=== PATIENT | male | born 1990 | race African-American/Black ===

== ENCOUNTER 2017-06-19 07:37 | Outpatient (CLI) | payer OTHER ==
[2016-09-05 15:26] VITALS: BP 136/68
[2017-06-19 08:15] LABS: BASOPHILS % 1.1 (0.0-1.5); MEAN CORPUSCULAR HEMOGLOBIN 26.4 pg (28.0-34.0); MEAN CORPUSCULAR VOLUME 81.9 fl (80.0-100.0); MONOCYTES % 6.8 % (0.0-11.0); NEUTROPHILS # 1.4 # k/uL (1.4-7.7)
[2017-06-19 08:49] LABS: eGFR (African) > 60; eGFR (Non-African) > 60
== END 2017-06-19 07:40 ==
LOC: LAB 07:37
PROVIDERS: ATTEND Emergency Medicine
DX: I10 Essential (primary) hypertension (principal); Z51.81 Encounter for therapeutic drug level monitoring; G80.9 Cerebral palsy, unspecified; F43.10 Post-traumatic stress disorder, unspecified
CPT/HCPCS: 36415; 80053; 80061; 80164; 82140; 82330; 83036; 83735; 84443; 85025

== ENCOUNTER 2017-09-06 13:55 | Outpatient (CLI) | payer OTHER ==
[2016-09-05 15:26] VITALS: BP 136/68
--- NOTE | 2017-09-06 15:32 | Diagnostic Imaging Report ---
TOÑO LI [facility] [address] [facility].[address] [address] Report Submission Date: Sep 06, 2017 2:34:40 PM ONLINE ADVERTISING ANALYST Patient Study Name: CHRISTOPH CULVER Date: Sep 06, 2017 2:05:44 PM ONLINE ADVERTISING ANALYST Modality Type: CR Gender: M Description: CHEST : 89 Institution: [facility] Physician: TOÑO LI Examination: PA and lateral chest. History: Evaluate lung hay. Findings: PA lateral chest demonstrate a normal cardiac and mediastinal silhouette. No focal infiltrate. No blunting of the costophrenic margins. Osseous structures are appropriate for age. Impression: No acute pulmonary process. Electronically signed on Sep 06, 2017 2:34:40 PM ONLINE ADVERTISING ANALYST by: Aries MERCADO
== END 2017-09-06 13:56 ==
LOC: RAD 13:55
PROVIDERS: ATTEND Nurse Practitioner Family
DX: R05 Cough (principal)
CPT/HCPCS: 71020

== ENCOUNTER 2017-11-01 09:56 | Outpatient (CLI) | payer OTHER ==
[2016-09-05 15:26] VITALS: BP 136/68
== END 2017-11-01 09:57 ==
LOC: OUT 09:56
PROVIDERS: ATTEND Colon & Rectal Surgery
DX: K92.1 Melena (principal); K59.09 Other constipation; I10 Essential (primary) hypertension; G80.9 Cerebral palsy, unspecified
CPT/HCPCS: 99213

== ENCOUNTER 2018-05-08 17:33 | Emergency (ER) | payer OTHER ==
[2018-05-08 17:56] VITALS: BP 125/85
--- NOTE | 2018-05-08 17:57 | ED Physician Documentation ---
Fall - HISTORIAN Historian: patient - HPI Stated Complaint: L axillary pain Chief Complaint: Shoulder Injury/ Pain Onset: just prior to arrival Where: home Context: tripped r: mild Associated Symptoms:: no loss of consciousness Location of Pain/Injury: L shoulder, upper extremity Injury to Right Extremity: none Injury to Left Extremity: shoulder, arm Further Comments: yes (he was walking and tripped on his untied shoe lace and f ell on his left arm and then he stated his shoulder and arm hurt . No LOC he did not hit his head. No OTC meds given) - ROS CONST: no problems NEURO: denies: dizziness MS/SKIN/LYMPH: back pain (chronic ). denies: weakness EYES/ENT: none CVS/RESP: none - PAST HX Past History: other (MR, HTN, anxiety, depression ) Immunizations: UTD Allergies/Adverse Reactions: Allergies Allergy/AdvReac Type Severity Reaction Status Date / Time PPD black rubber mix AdvReac Intermediate Unknown Verified 05/08/18 17:45 Home Medications: Ambulatory Orders Medication Instructions Recorded Bisacodyl [Dulcolax] 1 tab PO PRN PRN 09/05/16 Citalopram Hydrobromide [Celexa] 1 tab PO QID 09/05/16 LORazepam [Ativan] 1 mg PO QID 09/05/16 Loratadine [Claritin] 10 mg PO 09/05/16 Polyethylene Glycol 3350 [Miralax] 17 gm PO 1100 09/05/16 amLODIPine BESYLATE [Norvasc] 5 mg PO 0900 09/05/16 Trazodone HCl [Desyrel] 3 tab PO HS 05/08/18 - SOCIAL HX Smoking History: non-smoker Alcohol Use: none Drug Use: none - FAMILY HX Family History: none - VITAL SIGNS Vital Signs: Vital Signs Temp Pulse Resp BP Pulse Ox 78 14 125/85 98 05/08/18 17:40 05/08/18 17:40 05/08/18 17:40 05/08/18 17:40 - REVIEWED ASSESSMENTS Nursing Assessment Reviewed: Yes Vitals Reviewed: Yes ED Results Lab/Radiology - Radiology Radiology Impressions: Left shoulder, 3 views HISTORY Fall, shoulder pain. FINDINGS The osseous, joint and soft tissue structures are normal. IMPRESSION Normal. Electronically signed on May 08, 2018 6:37:46 PM CDT by: Jimmy Theron Left humerus, 2 images HISTORY Fall, injury, pain. FINDINGS The osseous, joint and soft tissue structures are normal. IMPRESSION Normal. Electronically signed on May 08, 2018 6:38:18 PM CDT by: Jimmy Crump - Orders Orders: ED Orders Category Date Time Status HUMERUS 2 VIEWS OR MORE [RAD] Stat Exams 05/08/18 Ordered SHOULDER 2 VIEWS OR MORE [RAD] Stat Exams 05/08/18 Ordered Fall Physical Exam - Physical Exam General Appearance: no acute distress, alert Head: non-tender Neck: non-tender ENT: nml external inspection Resp/CVS: chest non-tender, breath sounds nml, heart sounds nml. No: rib tenderness Abdomen: soft, no distension Neuro: oriented x3 Skin: color nml Back: normal inspection, other (scar on spine ) Extremities: atraumatic, hips non-tender, no pedal edema Joint: joints nml, limited ROM (left shoulder he states pain with active elevation - no bruise. ) - Justin Coma Score Eyes Open: Spontaneous Speech: Oriented Motor: Obeys Commands Discharge Clincal Impression: Fall Qualifiers: Encounter type: initial encounter Qualified Code(s): W19.XXXA - Unspecified fall, initial encounter Referrals: Violeta Hermosillo [Primary Care Provider] - 2 Days Comments: 1. Keep safety obstacles free of walk way 2. Use walker safely 3. Return to PCP for any continued pain 4. Return to ER for any concerns Condition: Stable Disposition: 01 HOME, SELF-CARE Decision to Admit: NO Date of Decison to Admit: 05/08/18 Decision Time: 18:20
--- NOTE | 2018-05-08 18:53 | Diagnostic Imaging Report ---
CHE MIX [facility] [id number] [facility] [address] [place], [place]. [address] Report Submission Date: May 08, 2018 6:38:18 PM CDT Patient Study Name: CHRISTOPH CULVER Date: May 08, 2018 6:10:46 PM CDT Modality Type: DX Gender: M Description: UPPER EXTREMITY : 89 Institution: [facility] Physician: CHE MIX Left humerus, 2 images HISTORY Fall, injury, pain. FINDINGS The osseous, joint and soft tissue structures are normal. IMPRESSION Normal. Electronically signed on May 08, 2018 6:38:18 PM CDT by: Jimmy MERCADO
--- NOTE | 2018-05-08 18:53 | Diagnostic Imaging Report ---
CHE MIX [facility] [address] [facility] [address] [place], [place]. [address] Report Submission Date: May 08, 2018 6:37:46 PM CDT Patient Study Name: CHRISTOPH CULVER Date: May 08, 2018 6:06:30 PM CDT Modality Type: DX Gender: M Description: SHOULDER : 89 Institution: [facility] Physician: CHE MIX Left shoulder, 3 views HISTORY Fall, shoulder pain. FINDINGS The osseous, joint and soft tissue structures are normal. IMPRESSION Normal. Electronically signed on May 08, 2018 6:37:46 PM CDT by: Jimmy MERCADO
== END 2018-05-08 18:40 | disposition home or self-care (01) ==
LOC: ED 17:33
DX: M25.512 Pain in left shoulder (principal); M79.602 Pain in left arm; W19.XXXA Unspecified fall, initial encounter; Y92.018 Other place in single-family (private) house as the place of occurrence of the external cause; Y93.01 Activity, walking, marching and hiking; Y99.9 Unspecified external cause status
CPT/HCPCS: 73030; 73060; 99283

== ENCOUNTER 2018-05-22 10:09 | Outpatient (CLI) | payer OTHER | END 2018-05-22 10:10 | LOC: LAB 10:09 | PROVIDERS: ATTEND Psychiatry & Neurology Psychiatry | DX: Z51.81 Encounter for therapeutic drug level monitoring (principal) | CPT/HCPCS: 36415; 80164 ==

== ENCOUNTER 2018-08-27 09:23 | Outpatient (CLI) | payer OTHER ==
--- NOTE | 2018-08-28 05:07 | Diagnostic Imaging Report ---
BRENDA EASTMAN [facility] [address] [facility].[address] [address] Report Submission Date: Aug 27, 2018 8:48:31 PM METAL MOVER Patient Study Name: CHRISOTPH CULVER Date: Aug 27, 2018 8:35:57 AM METAL MOVER Modality Type: US Gender: M Description: US PELVIS LIMITED : 89 Institution: [facility] Physician: BRENDA EASTMAN Limited pelvic ultrasound Clinical history: Evaluate for postvoid bladder volume. Technique: Real-time sonography of the bladder is performed in transverse and longitudinal views. Images are obtained pre and post void. Findings: Bladder wall is mildly thickened suggesting chronic bladder outlet obstruction. There is no obvious filling defect. Prevoid bladder volume is calculated as 237 mL with a postvoid bladder volume 51 mL. Impression: 1. Bladder wall thickening suggesting chronic outlet obstruction. 2. Mild postvoid residual. Electronically signed on Aug 27, 2018 8:48:31 PM METAL MOVER by: Carlos MERCADO
== END 2018-08-27 10:30 ==
LOC: RAD 09:23
PROVIDERS: ATTEND Nurse Practitioner Family
DX: N39.9 Disorder of urinary system, unspecified (principal); G80.9 Cerebral palsy, unspecified; Z79.899 Other long term (current) drug therapy
CPT/HCPCS: 76857

== ENCOUNTER 2018-09-06 08:38 | Outpatient (CLI) | payer OTHER | END 2018-09-06 09:00 | LOC: LAB 08:38 | PROVIDERS: ATTEND Nurse Practitioner Family | DX: Z79.899 Other long term (current) drug therapy (principal); Z51.81 Encounter for therapeutic drug level monitoring | CPT/HCPCS: 36415; 80164 ==